=== PATIENT | female | born 1965 | race Caucasian/White ===

== ENCOUNTER 2023-10-02 07:34 | Day surgery (SDC) | payer OTHER ==
[~2023-10-02] VITALS: Ht 157.5 cm; Wt 83.9 kg
[2023-10-02] MEDS ORDERED: LIDOCAINE MPF 2% 20 MG/1 ML, 5 ML VIAL INH ONE (09:00)
[2023-10-02] MEDS ORDERED: ONDANSETRON HCL 4 MG/2 ML VIAL ONE (09:01)
[2023-10-02] MEDS ORDERED: DIPHENHYDRAMINE INJ 50 MG/ML VIAL ONE (09:01)
[2023-10-02 09:18] VITALS: O2SAT 98
[2023-10-02] MEDS: fentaNYL CITRATE/PF 100 MCG/2 ML AMP ONE (10:02)
[2023-10-02] MEDS: MIDAZOLAM HCL 5 MG/5 ML VIAL ONE (10:03)
[2023-10-02 14:41] VITALS: BP_SYST 144; PULSE 91; RESP 18
== END 2023-10-02 10:50 | disposition home or self-care (01) ==
LOC: SDS 07:34 → SMU 07:41 → SDS 10:50
PROVIDERS: ATTEND Internal Medicine
DX: M51.16 Intervertebral disc disorders with radiculopathy, lumbar region (principal); I10 Essential (primary) hypertension; E11.9 Type 2 diabetes mellitus without complications; E78.5 Hyperlipidemia, unspecified; K21.9 Gastro-esophageal reflux disease without esophagitis; M19.90 Unspecified osteoarthritis, unspecified site; Z90.710 Acquired absence of both cervix and uterus; Z98.890 Other specified postprocedural states; Z79.84 Long term (current) use of oral hypoglycemic drugs; Z79.899 Other long term (current) drug therapy
CPT/HCPCS: 62323; 82948; J2250; J3010; Q9967; J1010; 76000; J1030; J1200; J2405